=== PATIENT | female | born 1950 | race Caucasian/White ===

== ENCOUNTER → 2017-05-03 | Outpatient (CLI) | payer MEDICARE, BC | END | disposition home or self-care (01) | LOC: PCVCCLINIC 12:05 | PROVIDERS: ATTEND Internal Medicine Cardiovascular Disease | DX: I25.10 Atherosclerotic heart disease of native coronary artery without angina pectoris (principal); E78.00 Pure hypercholesterolemia, unspecified; I77.89 Other specified disorders of arteries and arterioles; R01.1 Cardiac murmur, unspecified; I35.0 Nonrheumatic aortic (valve) stenosis; I12.0 Hypertensive chronic kidney disease with stage 5 chronic kidney disease or end stage renal disease; N18.6 End stage renal disease; E78.5 Hyperlipidemia, unspecified; I65.23 Occlusion and stenosis of bilateral carotid arteries; Z87.891 Personal history of nicotine dependence; Z79.84 Long term (current) use of oral hypoglycemic drugs; Z79.899 Other long term (current) drug therapy; Z88.1 Allergy status to other antibiotic agents | CPT/HCPCS: 80061; 93005; G0463 ==

== ENCOUNTER → 2017-05-09 | Outpatient (CLI) | payer MEDICARE, BC ==
--- NOTE | 2017-05-09 15:55 | PCVCIMAG ---
EXAM: BILATERAL CAROTID DUPLEX INDICATION: Carotid Occlusive Disease. FINDINGS: Doppler Measurements (centimeters per second): RIGHT: Peak CCA-70, Peak ECA-123, Diastolic ICA-27, Peak ICA-138, ICA/CCA Ratio-2.0. LEFT: Peak CCA-79, Peak ECA-94, Diastolic ICA-19, Peak ICA-89, ICA/CCA Ratio-1.1. RIGHT CAROTID: The carotid bulb has moderate plaque. The proximal internal carotid artery shows 40-50% stenosis. The common carotid artery shows no significant stenosis. The external carotid artery shows less than 50% stenosis. LEFT CAROTID: The carotid bulb has mild plaque. The proximal internal carotid artery shows <40% stenosis. The common carotid artery shows no significant stenosis. The external carotid artery shows no significant stenosis. Antegrade flow in both vertebral arteries. IMPRESSION: 40-50% stenosis of the right internal carotid artery with moderate plaque. <40% stenosis of the left internal carotid artery with mild plaque. LOC:[place] [id number]
--- NOTE | 2017-05-09 21:59 | PCVCIMAG ---
APPROVED REPORT Study performed: 05/09/2017 15:54:33 EXAM: Comprehensive 2D, Doppler, and color-flow Echocardiogram Patient Location: Echo lab Status: routine Other Information Study Quality: Adequate Indications Aortic Valve Disease Murmur 2D Dimensions LVEF(%): 76.61 (>50%) IVSd: 7.79 (7-11mm)LVOT Diam: 19.54 (18-24mm) LVDd: 43.66 mm PWd: 12.87 (7-11mm)Ascending Ao: 27.73 (22-36mm) LVDs: 23.99 (25-40mm) Left Atrium: 39.14 (27-40mm) Aortic Root: 18.07 mm LV Single Plane 4CH: 64.90 % LV Single Plane 2CH: 77.88 %Casarez's LVEF: 71.39 % Biplane EF: 74.4 % Volumes Left Atrial Volume (Systole) Single Plane 4CH: 73.85 mLSingle Plane 2CH: 59.16 mL LA ESV Index: 38.00 mL/m2 Aortic Valve AoV Peak Chandu.: 2.93 m/s AO Peak Gr.: 34.84 mmHgLVOT Max P.96 mmHg AO Mean Gr.: 23.16 mmHgLVOT Mean P.36 mmHg AO V2 Mean: 2.34 m/sLVOT Max V: 1.36 m/s AO V2 VTI: 78.40 cmLVOT Mean V: 0.99 m/s LEIDA (VTI): 1.35 [id number] V1 VTI: 35.30 cm LEIDA Vmax: 1.39 cm2 SV (LVOT): 105.74 mL Mitral Valve MV Peak Gr.: 7.17 mmHg MV Mean Gr.: 2.33 mmHgE/A Ratio: 1.2 MV Decel. Time: 188.15 ms MV E Max Chandu.: 1.32 m/s MV A Chandu.: 1.11 m/s MV Max Chandu.: 1.34 m/s MV Mean Chandu.: 0.70 m/s MV VTI: 339.69 mm MVA VTI: 311.29 mm2 MV PHT: 73.34 ms MVA (PHT): 3.00 cm2 IVRT: 65.74 ms TDI E/Lateral E': 18.86E/Medial E': 18.86 Medial E' Chandu.: 0.07 m/s Lateral E' Chandu.: 0.07 m/s Pulmonary Valve PV Peak Chandu.: 1.14 m/sPV Peak Gr.: 5.16 mmHg Pulmonary Vein P Vein S: 0.71 m/sP Vein A: 0.36 m/s P Vein D: 0.64 m/sP Vein A Dur.: 134.9 msec P Vein S/D Ratio: 1.11 Tricuspid Valve TR Peak Chandu.: 2.83 m/s TR Peak Gr.: 32.12 mmHg TV Vmax: 0.78 m/sPA Pressure: 39.00 mmHg Left Ventricle The left ventricle is normal size. There is normal LV segmental wall motion. Mild concentric left ventricular hypertrophy. Sigmoid septum is present. Mild Left ventricular outflow tract gradient is present. The overall left ventricular systolic function appears upper limits of normal normal. LVEF is >70%. Left ventricular filling pattern is normal for age. Right Ventricle The right ventricle is normal size. The right ventricular systolic function is normal. Atria Left atrium is mildly dilated. Right atrium size is normal. Aortic Valve Aortic valve is trileaflet. Aortic valve leaflets are moderately calcified with moderately reduced excursion. Trace aortic regurgitation. Moderate aortic stenosis. Peak aortic valve gradient is 34 mmHg with a mean gradient of 23 mmHg. Calculated LEIDA by the continuity equation is 1.4 cm2 Mitral Valve Moderate mitral annular calcification. The mitral valve is mildly sclerotic. The posterior leaflet is more heavily calcified with mild restriction in movement. The mitral valve area id 3.1 cm2 There is no mitral valve regurgitation noted. No evidence of mitral valve stenosis. Tricuspid Valve The tricuspid valve is normal in structure. There is mild tricuspid regurgitation with a PA pressure [id number] Pulmonic Valve The pulmonary valve is normal in structure. There is no pulmonic valvular regurgitation. Great Vessels The aortic root is normal in size. The ascending aorta is normal in size. IVC is normal in size and collapses with >50% inspiration Pericardium There is no pericardial effusion. There is no pleural effusion. <Conclusion> Mild concentric left ventricular hypertrophy. Sigmoid septum is present. Mild Left ventricular outflow tract gradient is present. The left ventricle is normal size. LVEF is >70%. Left ventricular filling pattern is normal for age. The right ventricle is normal size. Left atrium is mildly dilated. Moderate aortic stenosis. Peak aortic valve gradient is 34 mmHg with a mean gradient of 23 mmHg. Calculated LEIDA by the continuity equation is 1.4 cm2 Moderate mitral annular calcification. The mitral valve is mildly sclerotic. The posterior leaflet is more heavily calcified with mild restriction in movement. The mitral valve area id 3.1 cm2 There is no mitral valve regurgitation noted. There is mild tricuspid regurgitation with a PA pressure [id number] There is no pericardial effusion.
== END | disposition home or self-care (01) ==
LOC: PCVCIMAG 15:08
PROVIDERS: ATTEND Internal Medicine Cardiovascular Disease
DX: I65.23 Occlusion and stenosis of bilateral carotid arteries (principal); I08.3 Combined rheumatic disorders of mitral, aortic and tricuspid valves; I10 Essential (primary) hypertension; E83.52 Hypercalcemia; R01.1 Cardiac murmur, unspecified; Z87.891 Personal history of nicotine dependence
CPT/HCPCS: 93306; 93880

== ENCOUNTER → 2017-12-06 | Outpatient (CLI) | payer MEDICARE, BC | END | disposition home or self-care (01) | LOC: PCVCCLINIC 11:49 | DX: I10 Essential (primary) hypertension (principal); R93.1 Abnormal findings on diagnostic imaging of heart and coronary circulation; E78.00 Pure hypercholesterolemia, unspecified; I77.9 Disorder of arteries and arterioles, unspecified; I87.2 Venous insufficiency (chronic) (peripheral); K21.9 Gastro-esophageal reflux disease without esophagitis; E11.9 Type 2 diabetes mellitus without complications; R09.89 Other specified symptoms and signs involving the circulatory and respiratory systems; I08.0 Rheumatic disorders of both mitral and aortic valves; R94.31 Abnormal electrocardiogram [ECG] [EKG]; Z82.49 Family history of ischemic heart disease and other diseases of the circulatory system; Z87.891 Personal history of nicotine dependence; Z79.899 Other long term (current) drug therapy; Z79.84 Long term (current) use of oral hypoglycemic drugs | CPT/HCPCS: 80061; 93005; G0463 ==

== ENCOUNTER → 2017-12-20 | Outpatient (CLI) | payer MEDICARE, BC | END | disposition home or self-care (01) | LOC: PCVCIMAG 09:35 | DX: I73.9 Peripheral vascular disease, unspecified (principal) | CPT/HCPCS: 93925 ==

== ENCOUNTER → 2018-03-15 | Outpatient (CLI) | payer MEDICARE, BC ==
[~2018-03-15] MED LIST: REGADENOSON 0.4 MG/5 ML DISP.SYRIN. IV
== END | disposition home or self-care (01) ==
LOC: PCVCIMAG 08:42
DX: I65.23 Occlusion and stenosis of bilateral carotid arteries (principal); I08.3 Combined rheumatic disorders of mitral, aortic and tricuspid valves; E11.9 Type 2 diabetes mellitus without complications; I10 Essential (primary) hypertension; I25.10 Atherosclerotic heart disease of native coronary artery without angina pectoris; E83.59 Other disorders of calcium metabolism; E78.5 Hyperlipidemia, unspecified; I73.9 Peripheral vascular disease, unspecified; Z82.49 Family history of ischemic heart disease and other diseases of the circulatory system; Z87.891 Personal history of nicotine dependence
CPT/HCPCS: 78452; 93017; 93306; 93880; A9500; J2785

== ENCOUNTER → 2018-03-26 | Outpatient (CLI) | payer MEDICARE, BC ==
[~2018-03-26] MED LIST changes: +CLOPIDOGREL BISULFATE 75 MG TABLET; +DIAZEPAM 10 MG TABLET.; +HEPARIN SODIUM 5,000 UNIT/ML VIAL for PCVC.; +HEPARIN for ARTERIAL LINE 1,500 ML; +IODIXANOL 270 MG/ML 100 ML VIAL.; +IOHEXOL 350 MG/ML 100 ML VIAL.; +IV NORMAL SALINE 500ML BAG 500 ML; +MIDAZOLAM HCL/PF 2 MG/2 ML VIAL.; -REGADENOSON 0.4 MG/5 ML DISP.SYRIN. IV; +WATER FOR INJECTION,STERILE 20 ML VIAL. IJ; +ceFAZolin SODIUM 1 GM VIAL; +fentaNYL PF VIAL 100 MCG/2 ML VIAL; +hydrALAZINE 20 MG/ML VIAL.
== END | disposition home or self-care (01) ==
LOC: PCVCINTER 10:05
DX: I70.213 Atherosclerosis of native arteries of extremities with intermittent claudication, bilateral legs (principal); I70.0 Atherosclerosis of aorta; I70.1 Atherosclerosis of renal artery; I25.10 Atherosclerotic heart disease of native coronary artery without angina pectoris; I10 Essential (primary) hypertension
CPT/HCPCS: 36252; 37220; 75716; 76937; 93458; 99152; 99153; C1725; C1751; C1760; C1769; C1894; J0360; J0690; J1644; J2250; J3010; J7040; Q9967

== ENCOUNTER → 2018-06-26 | Outpatient (CLI) | payer MEDICARE, BC ==
--- NOTE | 2018-06-26 08:47 | PCVCIMAG ---
EXAM: NONINVASIVE ARTERIAL EXAMINATION OF BOTH LOWER EXTREMITIES INCLUDING PRE AND POST EXERCISE PRESSURE MEASUREMENTS AND DOPPLER WAVEFORMS INDICATION: Peripheral Arterial Disease. Leg pain. FINDINGS: Right Brachial: 158 mm Hg. Right Dorsalis Pedis: 153 mm Hg. Right Posterior Tibial: 161 mm Hg. Right ELENA = 1.02. Left Brachial: 154 mm Hg. Left Dorsalis Pedis: 157 mm Hg. Left Posterior Tibial: 156 mm Hg. Left ELENA = 0.99. Post Exercise: Right Brachial 158 mm Hg. Right Posterior Tibial: 146 mm Hg. Left Dorsalis Pedis: 160 mm Hg. Right ELENA = 0.92. Left ELENA = 1.01. IMPRESSION: No resting ischemia in the right lower extremity. No exercise induced ischemia in the right lower extremity. No resting ischemia in the left lower extremity. No exercise induced ischemia in the left lower extremity. LOC:[id number]
--- NOTE | 2018-06-26 10:52 | PCVCIMAG ---
EXAM: AORTOILIAC DUPLEX INDICATION: Peripheral arterial disease FINDINGS: AORTA: Suprarenal aorta measures maximum diameter of 2.7 cm. There is not a fusiform infrarenal aortic aneurysm. The infrarenal aorta measures maximum diameter of 1.6 cm. No aortic stenosis. RIGHT COMMON ILIAC ARTERY: Maximum diameter is 1.2 cm. Mild stenosis. RIGHT EXTERNAL ILIAC ARTERY: No significant stenosis. LEFT COMMON ILIAC ARTERY: Maximum diameter is 1.6 x 2.0 cm. No significant stenosis. LEFT EXTERNAL ILIAC ARTERY: No significant stenosis. IMPRESSION: No abdominal aortic aneurysm. 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 Previous angioplasty site left common iliac artery maintaining satisfactory patency. Mild stenosis proximal right common iliac artery. LOC:[id number]
== END | disposition home or self-care (01) ==
LOC: PCVCIMAG 13:11
PROVIDERS: ATTEND Nuclear Medicine Nuclear Cardiology
DX: E11.51 Type 2 diabetes mellitus with diabetic peripheral angiopathy without gangrene (principal)
CPT/HCPCS: 93923; 93978; 93924

== ENCOUNTER → 2018-07-02 | Outpatient (CLI) | payer MEDICARE, BC | END | disposition home or self-care (01) | LOC: PCVCCLINIC 08:00 | PROVIDERS: ATTEND Internal Medicine Cardiovascular Disease | DX: I73.9 Peripheral vascular disease, unspecified (principal); I77.9 Disorder of arteries and arterioles, unspecified; I25.10 Atherosclerotic heart disease of native coronary artery without angina pectoris; E78.4 Other hyperlipidemia; E11.9 Type 2 diabetes mellitus without complications; I35.0 Nonrheumatic aortic (valve) stenosis; M79.7 Fibromyalgia; I72.3 Aneurysm of iliac artery; Z87.891 Personal history of nicotine dependence; Z79.84 Long term (current) use of oral hypoglycemic drugs; Z79.82 Long term (current) use of aspirin; Z79.899 Other long term (current) drug therapy; Z88.8 Allergy status to other drugs, medicaments and biological substances | CPT/HCPCS: G0463 ==

== ENCOUNTER → 2019-01-09 | Outpatient (CLI) | payer MEDICARE, BC ==
[~2019-01-09] MED LIST changes: -CLOPIDOGREL BISULFATE 75 MG TABLET; -DIAZEPAM 10 MG TABLET.; -HEPARIN SODIUM 5,000 UNIT/ML VIAL for PCVC.; -HEPARIN for ARTERIAL LINE 1,500 ML; -IODIXANOL 270 MG/ML 100 ML VIAL.; -IOHEXOL 350 MG/ML 100 ML VIAL.; -IV NORMAL SALINE 500ML BAG 500 ML; -MIDAZOLAM HCL/PF 2 MG/2 ML VIAL.; +REGADENOSON 0.4 MG/5 ML DISP.SYRIN. IV ONE; -WATER FOR INJECTION,STERILE 20 ML VIAL. IJ; -ceFAZolin SODIUM 1 GM VIAL; -fentaNYL PF VIAL 100 MCG/2 ML VIAL; -hydrALAZINE 20 MG/ML VIAL.
--- NOTE | 2019-01-09 09:17 | PCVCIMAG ---
APPROVED REPORT Study performed: 01/09/2019 08:13:46 EXAM: Comprehensive 2D, Doppler, and color-flow Echocardiogram Patient Location: Echo lab BSA: 1.74 HR: 73 bpmBP: 160/80 mmHg Rhythm: NSR Other Information Study Quality: Good Risk Factors: Cardiac Risk Factors: HTN, DM Indications Diabetes Hypertension/HDD Aortic Stenosis 2D Dimensions IVSd: 16.32 (7-11mm)LVOT Diam: 19.81 (18-24mm) LVDd: 38.15 mm PWd: 14.47 (7-11mm)Ascending Ao: 29.89 (22-36mm) LVDs: 27.28 (25-40mm) Left Atrium: 48.24 (27-40mm) Aortic Root: 26.15 mm Volumes Left Atrial Volume (Systole) Single Plane 4CH: 73.76 mLSingle Plane 2CH: 52.23 mL LA ESV Index: 39.00 mL/m2 Aortic Valve AoV Peak Chandu.: 3.08 m/s AO Peak Gr.: 38.02 mmHgLVOT Max P.03 mmHg AO Mean Gr.: 22.24 mmHgLVOT Mean P.77 mmHg AO V2 Mean: 2.22 m/sLVOT Max V: 1.23 m/s AO V2 VTI: 73.89 cmLVOT Mean V: 0.94 m/s LEIDA (VTI): 1.17 [id number] V1 VTI: 28.16 cm LEIDA Vmax: 1.23 cm2 SV (LVOT): 86.75 mL Mitral Valve MV Peak Gr.: 10.06 mmHg MV Mean Gr.: 4.74 mmHgE/A Ratio: 1.1 MV Decel. Time: 151.04 ms MV E Max Chandu.: 1.52 m/s MV A Chandu.: 1.35 m/s MV Max Chandu.: 1.59 m/s MV Mean Chandu.: 1.02 m/s MV VTI: 463.27 mm MVA VTI: 187.26 mm2 MV PHT: 49.58 ms MVA (PHT): 4.44 cm2 IVRT: 86.51 ms TDI E/Lateral E': 21.71E/Medial E': 21.71 Medial E' Chandu.: 0.07 m/s Lateral E' Chandu.: 0.07 m/s Pulmonary Valve PV Peak Gr.: 3.51 mmHg Pulmonary Vein P Vein S: 1.06 m/sP Vein A: 0.37 m/s P Vein D: 1.07 m/s P Vein S/D Ratio: 0.99 Tricuspid Valve TR Peak Chandu.: 2.42 m/s TR Peak Gr.: 23.50 mmHg Left Ventricle The left ventricle is normal size. There is normal LV segmental wall motion. Mild concentric left ventricular hypertrophy. Left ventricular systolic function is normal. The left ventricular ejection fraction is within the normal range. LVEF is 60-65%. The left ventricular diastolic function is normal. Right Ventricle The right ventricle is normal size. The right ventricular systolic function is normal. Atria Left atrium is mildly dilated. The right atrium size is normal. Aortic Valve Aortic valve is probably trileaflet. Aortic valve leaflets are moderately thickened. Trace aortic regurgitation. Aortic peak gradient is 38mmHg. Mean gradient is 23mmHg. Calculated aortic valve area is 1.2cm2. Mitral Valve Mild mitral annular calcification. Trace to mild mitral regurgitation. No evidence of mitral valve stenosis. Tricuspid Valve The tricuspid valve is normal in structure. Trace tricuspid regurgitation. Pulmonary artery pressure is 30mmHg. Pulmonic Valve The pulmonary valve is normal in structure. There is no pulmonic valvular regurgitation. Great Vessels The aortic root is normal in size. IVC is normal in size and collapses >50% with inspiration. Pericardium There is no pericardial effusion. <Conclusion> The left ventricle is normal size. LVEF is 60-65%. The left ventricular diastolic function is normal. The right ventricle is normal size. Left atrium is mildly dilated. Aortic valve is probably trileaflet. Aortic valve leaflets are moderately thickened. Aortic peak gradient is 38mmHg. Mean gradient is 23mmHg. Calculated aortic valve area is 1.2cm2. Trace to mild mitral regurgitation. Trace tricuspid regurgitation. Pulmonary artery pressure is 30mmHg. The aortic root is normal in size. There is no pericardial effusion. Mild concentric left ventricular hypertrophy.
--- NOTE | 2019-01-13 10:23 | PCVCIMAG ---
APPROVED REPORT Imaging Protocol: Rest Tc-99m/Stress Tc-99m 1 day Study performed: 01/09/2019 08:57:23 Indication: Chest pain, Dyspnea Patient Location: Out-Patient Stress Nurse: Irasema Lechuga RN, Janel Amador RN MI Tech:Beverly Sharmajonny [facility] Ht: 5 ft 1 in Wt: 165 lbs BSA: 1.74 m2 HR: 78 bpm BP: 198/81 mmHg BMI: 31.1 Rhythm: Normal Sinus Rhythm Medical History Medical History: HTN, Hyperlipidemia, CVD, PVD, CVD, Diabetes, Former Smoker Allergies: Sulfa Cardiac Risk Factors: Age, FHX of CAD Pretest Chest Pain Characteristics: No chest pain Resting Data Rest SPECT myocardial perfusion imaging was performed in supine position 45 minutes following the intravenous injection of 10 mCi of Tc-99m Sestamibi. Time of rest injection: 0900 Date: 01/09/2019 Administration Route: IV Administration Site: Left Arm Pharmacologic Stress Pharmacologic stress test was performed by injecting Regadenoson 0.4 mg IV push over 10-15 seconds immediately followed by the intravenous injection of 32.8 mCi of Tc-99m Sestamibi. Time of stress injection: 1030 Date: 01/09/2019 Administration Route: IV Administration Site: Left Arm Gated Stress SPECT was performed 45 minutes after stress injection. The images were gated to evaluate regional wall motion and calculate left ventricular ejection fraction. Stress Test Details Stress Test: Pharmacologic stress testing performed using 0.4 mg of regadenoson per 5 mL given IV over 10 seconds. Reason for pharmacologic stress test: physical limitation. HRMax Heart Rate (APMHR): 152 bpm Resting HR: 78 bpmTarget HR (85% APMHR): 129 bpm Max HR Achieved: 99 bpm % of APMHR: 65 Recovery HR: 86 bpm BP Resting BP: 198/81 mmHg Max BP: 162/69 mmHg Recovery BP: 147/67 mmHg ECG Resting ECG: Normal Sinus Rhythm Stress ECG: Normal Sinus Rhythm Recovery ECG: Normal Sinus Rhythm Clinical Reason for Termination: Completed protocol Stress Symptoms: Abdominal discomfort, Chest pain, Lightheaded Exercise duration: 0 min 55 sec Symptoms resolved with caffeine. Stress ECG Conclusion ECG: Non-ischemic Study Quality Study: Good Study Data Post stress, the left ventricular ejection was 64%.. SSS: 6 SRS: 1 SDS: 5 TID = 1.17. Perfusion No evidence of stress induced ischemia or prior myocardial infarction. Wall Motion Normal left ventricular size and function with no regional wall motion abnormalities. Nuclear Conclusion No evidence of stress induced ischemia or prior myocardial infarction. Normal left ventricular size and function with no regional wall motion abnormalities. Post stress, the left ventricular ejection was 64%. No change since prior study dated March 2018. Interpreted by: Nemesio Clark MD Electronically Approved: 01/09/2019 19:13:50 <Conclusion> ECG: Non-ischemic
== END | disposition home or self-care (01) ==
LOC: PCVCIMAG 10:21
PROVIDERS: ATTEND Internal Medicine Cardiovascular Disease
DX: I10 Essential (primary) hypertension (principal); E11.9 Type 2 diabetes mellitus without complications; I35.0 Nonrheumatic aortic (valve) stenosis; I25.10 Atherosclerotic heart disease of native coronary artery without angina pectoris; R07.9 Chest pain, unspecified; R93.1 Abnormal findings on diagnostic imaging of heart and coronary circulation; E78.5 Hyperlipidemia, unspecified; Z87.891 Personal history of nicotine dependence
CPT/HCPCS: 78452; 93017; 93306; A9500; J2785

== ENCOUNTER → 2019-03-28 | Outpatient (CLI) | payer MEDICARE, BC ==
--- NOTE | 2019-03-28 13:56 | PCVCIMAG ---
EXAM: BILATERAL CAROTID DUPLEX INDICATION: Carotid Occlusive Disease. FINDINGS: Doppler Measurements (centimeters per second): RIGHT: Peak CCA-78, Peak ECA-146, Diastolic ICA-49, Peak ICA-182, ICA/CCA Ratio-2.3. LEFT: Peak CCA-86, Peak ECA-85, Diastolic ICA-32, Peak ICA-122, ICA/CCA Ratio-1.4. RIGHT CAROTID: The carotid bulb has moderate plaque. The proximal internal carotid artery shows 60-70% stenosis. The common carotid artery shows no significant stenosis. The external carotid artery shows 40% stenosis. LEFT CAROTID: The carotid bulb has moderate plaque. The proximal internal carotid artery shows <40% stenosis. The common carotid artery shows no significant stenosis. The external carotid artery shows no significant stenosis. Antegrade flow in both vertebral arteries. IMPRESSION: 60-70% stenosis of the right internal carotid artery with moderate plaque. <40% stenosis of the left internal carotid artery with moderate plaque. No change since March 2018 study. LOC:[id number]
--- NOTE | 2019-03-28 18:13 | PCVCIMAG ---
EXAM: NONINVASIVE ARTERIAL EXAMINATION OF BOTH LOWER EXTREMITIES INCLUDING PRE AND POST EXERCISE PRESSURE MEASUREMENTS AND DOPPLER WAVEFORMS INDICATION: Peripheral Arterial Disease. Leg pain. FINDINGS: Right Brachial: 142 mm Hg. Right Dorsalis Pedis: 106 mm Hg. Right Posterior Tibial: 125 mm Hg. Right ELENA = 0.88. Left Brachial: 141 mm Hg. Left Dorsalis Pedis: 143 mm Hg. Left Posterior Tibial: 142 mm Hg. Left ELENA = 1.01. Post Exercise: Right Brachial 143 mm Hg. Right Posterior Tibial: 119 mm Hg. Left Dorsalis Pedis: 134 mm Hg. Right ELENA = 0.83. Left ELENA = 0.94. IMPRESSION: No resting ischemia in the right lower extremity. Minimal exercise induced ischemia in the right lower extremity. No resting ischemia in the left lower extremity. No exercise induced ischemia in the left lower extremity. LOC:[id number]
--- NOTE | 2019-03-28 18:17 | PCVCIMAG ---
EXAM: AORTOILIAC DUPLEX INDICATION: Iliac aneurysm. FINDINGS: AORTA: Suprarenal aorta measures maximum diameter of 2.5 cm. There is not a fusiform infrarenal aortic aneurysm. The infrarenal aorta measures maximum diameter of 1.7 cm. No aortic stenosis. RIGHT COMMON ILIAC ARTERY: Maximum diameter is 1.3 cm. 40-50% stenosis. RIGHT EXTERNAL ILIAC ARTERY: No significant stenosis. LEFT COMMON ILIAC ARTERY: Maximum diameter is 1.8 x 2.3 cm. Mild restenosis. LEFT EXTERNAL ILIAC ARTERY: No significant stenosis. IMPRESSION: No abdominal aortic aneurysm. 1.8 x 2.3 cm fusiform aneurysm lower left common iliac artery minimally increased in size since June 2018. Mild restenosis of common iliac artery not felt be flow-limiting. 40-50% stenosis right common iliac artery also not flow limiting. LOC:[id number]
== END | disposition home or self-care (01) ==
LOC: PCVCIMAG 08:00
PROVIDERS: ATTEND Internal Medicine Cardiovascular Disease
DX: I65.23 Occlusion and stenosis of bilateral carotid arteries (principal); I73.9 Peripheral vascular disease, unspecified; I25.10 Atherosclerotic heart disease of native coronary artery without angina pectoris; E78.00 Pure hypercholesterolemia, unspecified; D64.9 Anemia, unspecified; I72.3 Aneurysm of iliac artery; I12.0 Hypertensive chronic kidney disease with stage 5 chronic kidney disease or end stage renal disease; E11.22 Type 2 diabetes mellitus with diabetic chronic kidney disease; N18.6 End stage renal disease; Z87.891 Personal history of nicotine dependence
CPT/HCPCS: 36415; 80061; 93005; 93880; 93924; 93978; G0463

== ENCOUNTER → 2019-04-22 | Outpatient (CLI) | payer MEDICARE, BC | END | disposition home or self-care (01) | LOC: PCVCCLINIC 14:00 | PROVIDERS: ATTEND Internal Medicine Cardiovascular Disease | DX: I25.10 Atherosclerotic heart disease of native coronary artery without angina pectoris (principal); E78.00 Pure hypercholesterolemia, unspecified; I35.0 Nonrheumatic aortic (valve) stenosis; I48.0 Paroxysmal atrial fibrillation; I12.0 Hypertensive chronic kidney disease with stage 5 chronic kidney disease or end stage renal disease; E11.22 Type 2 diabetes mellitus with diabetic chronic kidney disease; E11.51 Type 2 diabetes mellitus with diabetic peripheral angiopathy without gangrene; N18.6 End stage renal disease; D64.9 Anemia, unspecified; I34.0 Nonrheumatic mitral (valve) insufficiency; I72.3 Aneurysm of iliac artery; K21.9 Gastro-esophageal reflux disease without esophagitis; Z82.49 Family history of ischemic heart disease and other diseases of the circulatory system; Z88.2 Allergy status to sulfonamides; Z87.891 Personal history of nicotine dependence; Z79.899 Other long term (current) drug therapy | CPT/HCPCS: 93005; G0463 ==

== ENCOUNTER → 2019-05-05 | Outpatient (CLI) | payer MEDICARE, BC | END | disposition home or self-care (01) | LOC: PCVCCLINIC 09:40 | PROVIDERS: ATTEND Internal Medicine Cardiovascular Disease | DX: I48.0 Paroxysmal atrial fibrillation (principal); I25.10 Atherosclerotic heart disease of native coronary artery without angina pectoris; I35.0 Nonrheumatic aortic (valve) stenosis; E11.22 Type 2 diabetes mellitus with diabetic chronic kidney disease; I12.0 Hypertensive chronic kidney disease with stage 5 chronic kidney disease or end stage renal disease; N18.9 Chronic kidney disease, unspecified; I34.0 Nonrheumatic mitral (valve) insufficiency; I73.9 Peripheral vascular disease, unspecified; I51.7 Cardiomegaly; K21.9 Gastro-esophageal reflux disease without esophagitis; E78.5 Hyperlipidemia, unspecified | CPT/HCPCS: 93005; G0463 ==